=== PATIENT | male | born 1980 | race Caucasian/White ===

== ENCOUNTER 2019-11-22 10:25 | Emergency (ER) | payer OTHER ==
[2019-11-22] MEDS ORDERED: Ondansetron PF 4 MG/2 ML Vial ONE (10:52)
[2019-11-22] MEDS ORDERED: Fentanyl 100 MCG/2 ML VIAL ONE (10:52)
[2019-11-22 10:56] LABS: #Lymphocytes 1.6 thou/uL (1.20-3.40); #Monocytes 0.3 thou/uL (0.11-0.59); #Neutrophils 2.8 thou/uL (1.40-6.50); %Basophils 0.9 % (0.0-1.0); %Lymphocytes 32.9 % (21.0-51.0); %Monocytes 6.3 % (0.0-10.0); %Neutrophils 58.9 % (42.0-75.0); Hemoglobin 14.7 g/dL (14.0-18.0); Mean Corpuscular Hemoglobin 28.2 pg (27.0-31.0); Mean Corpuscular Volume 88.1 fL (78.0-98.0); Mean Platelet Volume 9.2 fL (7.4-10.4); Platelet Count 172 thou/uL (130-400); RBC Distribution Width 11.9 % (11.5-14.5); Red Blood Cell (RBC) Count 5.24 mill/uL (4.70-6.10); White Blood Cell (WBC) Count 4.8 thou/uL (4.8-10.8)
[2019-11-22 10:59] LABS: Bilirubin Negative (Negative); Blood, Urine Negative (Negative); Clarity Clear (Clear); Glucose, Urine (Dipstick) Negative (Negative); Leukocyte Negative (Negative); Nitrite Negative (Negative); Protein, Urine (Dipstick) Negative (Neg-Trace); Urobilinogen 0.2 mg/dL (Less than 2)
[2019-11-22 11:09] LABS: ALT (SGPT) 36 U/L (8-55); AST (SGOT) 25 U/L (5-34); Albumin 4.7 g/dL (3.5-5.0); Alkaline Phosphatase 74 U/L (40-110); Anion Gap 14 mmol/L (10-20); BUN (Urea Nitrogen) 14 mg/dL (8.9-20.6); Bilirubin, Total 0.5 mg/dL (0.2-1.2); Calc. Creatinine Clearance 0 mL/min (70-130); Calcium 9.8 mg/dL (7.8-10.44); Carbon Dioxide 25 mmol/L (22-29); Chloride 107 mmol/L (98-107); Estimated GFR-MDRD 71; Globulin 2.5 g/dL (2.4-3.5); Glucose 97 mg/dL (70-105); Lipase 33 U/L (8-78); Potassium 4.1 mmol/L (3.5-5.1); Protein, Total 7.2 g/dL (6.0-8.3); Sodium 142 mmol/L (136-145)
--- NOTE | 2019-11-22 11:37 | CT ---
EXAM: CT angiogram chest and abdomen with IV contrast and 3-D reconstructions PROVIDED CLINICAL HISTORY: Left back, neck, and arm pain. COMPARISON: 04/21/2014 FINDINGS: The thoracic and abdominal aorta are normal in caliber without evidence of an aortic dissection. The bilateral visualized iliac arteries are patent. There is a normal arrangement of the great vessels at the aortic arch. The superior mesenteric and inferior mesenteric arteries are patent. Single patent right and 2 patent left renal arteries are present. 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 This may potentially be secondary to arcuate ligament. However, there is usually more downgoi ng orientation of the celiac artery with this entity. This is a stable finding when compared to the prior exam in 2014. The pulmonary arteries are well-opacified without evidence of a pulmonary embolus. Vascular calcifications are seen in the coronary arteries. There is no mediastinal, axillary, or hilar lymphadenopathy. A 4 mm pleural-based nodular density is seen along the lower aspect of the minor fissure which may po tentially represent a intrapleural lymph node. This is a stable finding. The lungs are otherwise clear. No consolidation or pleural effusion is identified. The liver, spleen, pancreas, bilateral adrenal glands, and kidneys demonstrate a normal CT appearance for arterial phase of imaging. No free fluid, fluid collection, or lymphadenopathy is seen in the abdomen. Tiny fat-containing umbilical hernia is seen. Osseous structures demonstrate a normal CT appearance. IMPRESSION: 1. Thoracic and abdominal aorta are normal in caliber without evidence of an aortic dissection. 2. 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 3. No acute findings are seen in the chest or abdomen.
[2019-11-22] MEDS ORDERED: Iopamidol 370 76% 100 ML VIAL ONE (13:36)
== END 2019-11-22 13:30 | disposition home or self-care (01) ==
LOC: BURERS 10:25
DX: M54.12 Radiculopathy, cervical region (principal); J45.909 Unspecified asthma, uncomplicated; R11.0 Nausea; Z79.899 Other long term (current) drug therapy
CPT/HCPCS: 71275; 72191; 74175; 80053; 81003; 83690; 84484; 85025; 85379; 93005; 94760; 96374; 96375; J2405; J3010; Q9967